=== PATIENT | female | born 1995 | race Caucasian/White ===

== ENCOUNTER 2016-09-18 19:02 | Outpatient (CLI) | payer OTHER ==
[2016-09-18 19:25] VITALS: BMI 38.3
== END 2016-09-18 20:23 | disposition home or self-care (01) ==
LOC: FBC 19:02 → FBCOUT 19:02
PROVIDERS: ATTEND Advanced Practice Midwife
DX: O47.9 False labor, unspecified (principal); Z3A.00 Weeks of gestation of pregnancy not specified; Z34.83 Encounter for supervision of other normal pregnancy, third trimester
CPT/HCPCS: 82570; 82043; 85025; 80053; 59025; G0463

== ENCOUNTER 2016-09-24 06:00 | Inpatient (IN) | payer OTHER ==
[2016-09-24 07:09] VITALS: BMI 38.3
[2016-09-24] MEDS: CALCIUM CARBONATE 750 MG TAB.CHEW PO PRN ×2 (07:56→13:21)
[2016-09-24] MEDS ORDERED: PENICILLIN G POTASSIUM 5 MMU in NS 0.9% (MINI-BAG PLUS) 100 ML IV ONE (08:55)
[2016-09-24] MEDS ORDERED: PUMP TUBING ONE (09:24)
[2016-09-24] MEDS ORDERED: OXYTOCIN IN LR 500 ML IV ONE (09:24)
[2016-09-24] MEDS ORDERED: MINERAL OIL 25 ML BOT ONE (09:24)
[2016-09-24] MEDS ORDERED: OXYTOCIN 10 UNITS/ML VIAL ONE (09:24)
[2016-09-24] MEDS ORDERED: LIDOCAINE 1% (PRES FREE) 30 ML VIAL ONE (09:24)
[2016-09-24] MEDS ORDERED: LIDOCAINE Viscous 2% 15 ML UDCUP ONE (09:24)
[2016-09-24] MEDS ORDERED: LACTATED RINGERS 1,000 ML ONE (09:25)
[2016-09-24] MEDS ORDERED: IV START KIT ONE (09:25)
[2016-09-24] MEDS ORDERED: PENICILLIN G POTASSIUM 5 MMU VIAL ONE (09:30)
[2016-09-24] MEDS ORDERED: SODIUM CHLORIDE 0.9% 100 ML IV ONE (09:31)
[2016-09-24] MEDS: LACTATED RINGERS 1,000 ML IV SCH ×3 (10:03→20:53)
[2016-09-24 10:43] LABS: HEMATOCRIT 36.9 % (37.0-47.0); HEMOGLOBIN 12.6 gm/l (12.0-16.0); MEAN CELL VOLUME 90.9 fl (81.0-99.0); MEAN CORPUSCULAR HGB CONC 34.1 g/dl (33.0-37.0); RED CELL DISTRIBUTION WIDTH 13.6 % (11.5-14.5)
--- NOTE | 2016-09-24 12:07 | PCMAN ---
OB Admission Note - History : 1 Term: 0 : 0 Abortions (S&E): 0 Livin Gestational Age (weeks): 41 Days (#/7): 1 Admit Cervical Dilation:: 4 Admit Cervical Effacement (%):: 80 Admit Station:: -2 Admit Presentaton:: vertex Membrane Status: Intact Labor Onset (Date): 09/24/16 Contractions: Yes Contraction Frequency:: q 4, 60, moderate Heart Rate:: 130 Status:: category 1 EFW:: 8# Summary of Course:: Onset of care at 8-9 weeks by uncertain LMP at [facility]. Dates by 10 week US. Transferred to us at 23 weeks and had essentially normal course until onset of labile blood pressures, significant pedal edema and proteinuria. PET labs normal 5 days ago. Had onset of contractions this am and made cervical change in an hour for labor check. BP stable on admit. - Labs Blood Type: B (+) positive Hct/Hgb:: 12.5 Rubella Status: Immune GBS Status: Positive Abnormal Labs: Other Other Labs:: P/C ratio >700 mg - Physical Exam Psych/Mental Status: Mood/Affect Appropriate Neurological: Grossly Intact Genitourinary: Normal Female Genitalia Rectal Exam: Deferred Extremities: Full ROM, Edema Skin: Normal Color, Warm, Dry, Intact
[2016-09-24] MEDS ORDERED: PENICILLIN G 3 MIL UNIT PREMIX 50 ML IV ONE ×3 (13:19→22:09)
[2016-09-24] MEDS: PENICILLIN G 3 MIL UNIT PREMIX 3 MMU in Premix (D5W) 50 ml 1 EACH IV SCH ×3 (13:46→22:33)
[2016-09-24] MEDS: OXYTOCIN IN LR 500 ML IV PRN (15:48)
--- NOTE | 2016-09-24 15:56 | PDOC36 ---
Provider Note Subject: CNM Progress note Note: S: Contractions have stopped. Pt asking many questions about labor- wants to know if they stopped because she didn't walk enough. O: Few contractions in last 2 hours FHR 130, good variability, no decels, category 1 BP stable 128/78, 138/85 A: Not in labor at 41 wks 1 day. Gestational proteinuria, labile hypertension P: Discussed options of starting pitocin vs going home to await labor. Risks and benefits of both reviewed. Pt opts for pitocin and orders placed.
[2016-09-24] MEDS: CALCIUM CARBONATE 500 MG TAB.CHEW PO PRN ×3 (18:09→21:17)
[2016-09-24] MEDS ORDERED: FENTANYL/ROPIVACAINE EPIDURAL 250 ML EP ONE (19:49)
[2016-09-24] MEDS ORDERED: EPIDURAL PUMP SET ONE (19:49)
[2016-09-24] MEDS ORDERED: BUPIVACAINE 0.25% (PRES FREE) 30 ML VIAL ONE (20:11)
[2016-09-24] MEDS ORDERED: EPIDURAL PROCEDURE TRAY ONE (20:11)
[2016-09-24] MEDS: FENTANYL/ROPIVACAINE EPIDURAL 250 ML EP SCH (21:56)
[2016-09-24] MEDS ORDERED: LABETALOL HCL 5 MG/ML 20ML VIAL IV ONE (22:48)
[2016-09-24] MEDS ORDERED: ACETAMINOPHEN 500 MG TABLET PO PRN (22:51)
[2016-09-24 23:05] LABS: ABSOLUTE NEUTROPHIL COUNT 9.6 K/mm3 (1.8-7.7); BASO % 0.3 % (0.2-1.0); HEMATOCRIT 33.9 % (37.0-47.0); HEMOGLOBIN 11.4 gm/l (12.0-16.0); IMM NEUT% 0.3 % (0-1); LYMPH # 1.3 (1.0-4.8); LYMPH % 10.9 % (15-45); MEAN CELL VOLUME 91.4 fl (81.0-99.0); MEAN CORPUSCULAR HEMOGLOBIN 30.7 pg (27.0-31.0); MEAN CORPUSCULAR HGB CONC 33.6 g/dl (33.0-37.0); MEAN PLATELET VOLUME 10.8 fl (7.4-10.4); MONO % 8.6 % (4-12); NEUT % 79.9 % (43-75); PLATELET COUNT 175 K/mm3 (130-400); RED CELL DISTRIBUTION WIDTH 13.9 % (11.5-14.5)
[2016-09-24 23:06] LABS: URINE BILIRUBIN NEGATIVE (NEGATIVE); URINE BLOOD NEGATIVE (NEGATIVE); URINE GLUCOSE (UA) NEGATIVE (NEGATIVE); URINE LEUKOCYTE ESTERASE NEGATIVE (NEGATIVE); URINE NITRITE NEGATIVE (NEGATIVE); URINE PROTEIN 2+ (NEGATIVE); URINE UROBILINOGEN NORMAL (0-1 mg/dl)
[2016-09-24 23:07] LABS: URINE APPEARANCE CLEAR; URINE COLOR YELLOW
[2016-09-24 23:13] LABS: URINE RBC 0-1 /hpf; URINE WBC 0-2 /hpf
[2016-09-24 23:16] LABS: CREATININE,RANDOM URINE 42 mg/dL
[2016-09-24 23:26] LABS: ALB/GLOB RATIO 0.9 (>1.0); ALBUMIN 2.7 gm/dL (3.5-5.7); CALCIUM 9.1 mg/dL (8.6-10.3)
--- NOTE | 2016-09-25 00:31 | PDOC36 ---
Provider Note Subject: Progress Note Note: Rosemarie Sanchez was starting to experience more uncomfortable uterine ctxs by 6:30pm. After some discussion about pain management she requested an epidural. She was on pitocin 7 mu/min IV at the time. ENVIRONMENTAL ENGINEERING INTERN came to her room and placed the epidural, with good effect. A urinary cath was placed and she was advised to lay on her side. After she became comfortable, the pitocin was augmented to achieve regular uterine ctxs. Laura has started to complain of a mild headache. Initially she declined Tylenol but accepted later in the night. We discussed that her BPs are remaining elevated even after her epidural. Her headache could be related to the BP, which is a potential symptom of pre-eclampsia. At this point will order labs to obtain a baseline. Her BPs have been elevated and Dr. Cardoza was consulted for medication parameters and notification of patient status. O/ FHR 136, accels, no decels, moderate variability Ctxs every 4 mins, moderate to palpation FHR 130, accels, no decels, moderate variability SVE 4/60/-2 at 7pm Pitocin IV BPs at 22:00 132/91, 22:20 156/88, 22:30 157/87 A/ for IOL for new onset proteinuria and elevated BPs Pitocin augmentation Latent labor GBS Positive Cat 1 FHR Headache P/ PET Labs Tylenol 1000mg, PO, for headache Consulted with Dr. Cardoza; Labetolol 20mg IV x 1 as needed and titrate up Continue to monitor labor progress closely
[2016-09-25] MEDS: LACTATED RINGERS 1,000 ML IV SCH ×6 (02:22→22:31)
[2016-09-25] MEDS ORDERED: ONDANSETRON 4 MG/2ML 2 ML VIAL ONE (02:28)
[2016-09-25] MEDS: CALCIUM CARBONATE 500 MG TAB.CHEW PO PRN (02:45)
[2016-09-25] MEDS ORDERED: PENICILLIN G 3 MIL UNIT PREMIX 50 ML IV ONE ×3 (02:46→10:59)
[2016-09-25] MEDS: PENICILLIN G 3 MIL UNIT PREMIX 3 MMU in Premix (D5W) 50 ml 1 EACH IV SCH ×4 (02:47→22:29)
[2016-09-25] MEDS ORDERED: NALBUPHINE HCL 20 MG/ML AMP IV PRN (03:00)
[2016-09-25] MEDS ORDERED: DIPHENHYDRAMINE HCL 50 MG/1 ML VIAL IV PRN (03:00)
[2016-09-25] MEDS ORDERED: METOCLOPRAMIDE HCL 5 MG/ML 2ML VIAL IV PRN (03:00)
[2016-09-25] MEDS ORDERED: NALOXONE HCL 0.4 MG/ML VIAL IV PRN (03:00)
[2016-09-25] MEDS ORDERED: SODIUM CHLORIDE 0.9% 500 ML IV PRN (03:00)
[2016-09-25] MEDS ORDERED: EPHEDRINE SULFATE 50 MG/ML 1ML VIAL IV PRN (03:00)
[2016-09-25] MEDS ORDERED: ONDANSETRON 4 MG/2ML 2 ML VIAL IV PRN (03:00)
[2016-09-25] MEDS ORDERED: LACTATED RINGERS 500 ML IV PRN (03:00)
--- NOTE | 2016-09-25 06:53 | PDOC36 ---
Provider Note Subject: Progress Note Note: Rosemarie Sanchez has slet through most of the night. She had two epidural bolus's at 2am and 3 am for pelvic pressure. RN checked her with the first episode and she was found to be 6.5./100/-1 and intact. Patient was turned on her other side and her pain improved. Pitocin has been running at 12mu/min through the night with uterine ctxs every 3 mins. Laura reported an improvement in her headache after she took the tylenol. Her BPs have also improved with sleep. No labetolol was given for her BPs. O/ FHR 130, Accels, no decels, moderate variability Ctxs every 3 mins and regular SVE at 2am: 6.5/100/-1 (Midnight was 6/100/-1 and OP) Pitocin at 12 mu/min Intact GBS positive BPs 0300 148/82, 0330 127/74, 0415 142/88, 0500 141/85 Afebrile P/C Ratio at 2300: 2643 H and H 11.4/33.9 A/ at 41 weeks and 2 days with proteinuria and elevated BPs Active labor phase Cat 1 FHR GBS positive P/ Reassess cervix this AM and adjust pitocin accordingly Consider AROM Treat BPs as needed Anticipate vaginal delivery
[2016-09-25] MEDS ORDERED: OXYTOCIN IN LR 500 ML IV ONE (07:51)
[2016-09-25] MEDS: FENTANYL/ROPIVACAINE EPIDURAL 250 ML EP SCH (10:44)
--- NOTE | 2016-09-25 11:13 | PDOC36 ---
Provider Note Subject: Labor Progress Note Note: Note delayed due to involvement in patient care S: Laura was feeling significant pelvic pressure and was found be dilated to 9.5cm with a bulging bag of water at 0700. She continued to labor to progress to complete and received a bolus of her epidural at the time. At 0830 minimal change was noted at the cervix, so AROM was considered. PARQ held with patient and she agreed with plan. AROM for clear fluid at 0850. At 0940 she was complete, feeling increased pressure, and a trial of pushing was initiated. Pushed in semi-reclined and side-lying with descent to 0 station but with little progress. Decided to labor down and reassess progress in one hour. O: VS BP 139/77 P 107 T 98.2F FHR 145, Accels, no decels, moderate variability Ctxs every 3 mins lasting 70-90 seconds SVE complete Pitocin at 12 mu/min Ruptured, clear fluid GBS positive Afebrile P/C Ratio at 2300: 2643 H and H 11.4/33.9 A: at 41 weeks and 2 days with proteinuria and elevated BPs Mild preeclampsia Cervix complete BPs remaining in moderate range Cat 1 FHR GBS positive Membranes ruptured x 2 hours, afebrile P: Labor down, position changes with peanut ball and spinning babies techniques. Consider IUPC to assess contraction strength while laboring down. Treat BPs as needed cEFM and intrauterine resus measures PRN. reasses descent in one hour and reevlauate as clinically indicated Anticipate vaginal delivery
[2016-09-25] MEDS: OXYTOCIN IN LR 500 ML IV PRN ×2 (12:30→13:04)
[2016-09-25] MEDS ORDERED: LIDOCAINE 1% (PRES FREE) 30 ML VIAL IF ONE (13:50)
[2016-09-25] MEDS ORDERED: FLU VACC 2016-17 (36MO-64Y)/PF 60 MCG/0.5 ML SYRINGE IM V ONE (14:35)
[2016-09-25] MEDS ORDERED: BENZOCAINE/MENTHOL 60 APPLIC/BOT TP PRN (15:07)
[2016-09-25] MEDS ORDERED: LANOLIN 50 APPLIC/7G TUBE TP PRN (15:07)
[2016-09-25] MEDS ORDERED: ACETAMINOPHEN 325 MG TABLET PO PRN (15:07)
[2016-09-25] MEDS ORDERED: MAGNESIUM HYDROXIDE 30 ML UDCUP PO PRN (15:07)
[2016-09-25] MEDS ORDERED: CALCIUM CARBONATE 500 MG TAB.CHEW PO PRN (15:07)
--- NOTE | 2016-09-25 15:50 | PCMDEL ---
Delivery Note - Labor 1st stage (hr/min):: 14 hrs 36 min 2nd stage (hr/min):: 3 hrs 36 mins 3rd stage (hr/min):: 8 mins Total (hr/min):: 18 hrs 12 mins Pushed (hr/min):: 2 hrs 36 mins - Delivery Delivery (Date): 09/25/16 Delivery (Time): 13:37 Gender: Male Weight: 8 lb 7 oz Presentation: Cephalic Position: OA Umbilical Cord: 3 Vessel Delayed Cord Clamping:: > 3 min 1 Minute Total: 9 5 Minute Total: 9 Placenta:: shultze, grossly intact EBL:: 400 Perineum:: 2nd degree vaginal, 2nd degree perineal Suture:: 3-0 chromic Anesthesia/Meds:: epidrual for labor, lidocaine for repair Length ROM:: 4h 48 mins Comments:: First Stage: Laura was traiged yesterday on 09/24 in latent labor and was admitted for IOL after a time of minimal cervical change. With Pitocin augmentation she progressed slowlyto active phase and was complete at 0940 this morning. She had epidural anesthesia for labor that was not very effective. Severe range BPs were noted in the wound care specialist of 09/[address] thibodeaux was consulted for parameters. Labetolol was never given as BPs remained within normal range or moderate range throughout the rest of labor. GBS pos with multiple doses - adequate prophylaxis. FHTs remained Cat 1 throughout first stage. AROM 0849 for clear fluid Second Stage: Laura made minimal progress for the first hour of pushing in multiple positions. She then moved to hands and knees and pushed spontaneously without directed coaching for another hour. After this time, infant was noted to be at +3 station. She pushed effectively in hands and knees for three more contractions. She reported that her legs were shaky and tired and moved to a semi hernandez's position. The crowned over several contractions, with occaional decels to the 100s during pushes. FHTs resolved quickly to baseline after each push. With controlled delvery of the head, of vigorous male, OA to LOT. Anterior shoulder and compound right hand came easily with the next push. No nuchal cord. delivered directly to the mother's abdomen and began crying. Apgars 9& 9. weight 8lbs 7 oz. Cord clamped and cut at 4 mins of life after pulsations ceased. Cord blood obtained. Third Stage: Perry Andersen and gentle traction - spontaneous delivery of grossly intact placenta. 3 vessel cord. IV Pitocin initiated for AMTSL. Vaginal vault and perineum inspected and found to have a 2nd degree left vaginal and perineal laceration. This was repaired with lidocaine anesthesia and 3-0 chromic with good approximation adn hemostasis. Fundus firm, midline. Straight cath for 200mL urine. Bleeding WNL remained skin to skin and bonding well with mother. QBL 400mL. Infant and mother in good condition.
[2016-09-25] MEDS: IBUPROFEN 800 MG TABLET PO SCH ×3 (17:35→23:29)
[2016-09-26] MEDS: IBUPROFEN 800 MG TABLET PO SCH ×3 (05:29→18:21)
[2016-09-26 06:35] LABS: HEMATOCRIT 27.5 % (37.0-47.0); HEMOGLOBIN 9.2 gm/l (12.0-16.0)
[2016-09-26] MEDS: DOCUSATE SODIUM 100 MG CAPSULE PO SCH (09:43)
--- NOTE | 2016-09-26 11:53 | PDOC44 ---
- Subjective Day: 1 Laura is feeling well this morning. She has the baby on her lap. She said he woke up to nurse at 2am and then at 7am. Advised to wake home a bit earlier than 5 hours, so as to establish nursing. She agreed. Her bleeding was slightly heavier yesterday after delivery bur reports a slowing of that today. Changes her pad every 3-4 hours. Minimal uterine cramping noted. Eating, drinking and voiding. Her BPs today are much improved over her BPs in labor. She did not require treatment while in labor. She reports that she had a lot of anxiety at the time and feels this was attributing to the elevation. She feels much less anxious now and is getting better sleep. Denies headache, swelling or RUQ pain. Advised Laura that she will probably stay 72 hours, as recommended with Pre- eclampsia. Reports Pain Tolerable, Reports , Reports Lochia Light, Reports Tolerating Regular Diet - Objective Temp Pulse Resp BP Pulse Ox 98.2 F 100 16 132/62 09/26/16 07:40 09/26/16 07:40 09/26/16 07:40 09/26/16 07:40 Lab Results 09/26/16 06:00 Hgb 9.2 L D Hct 27.5 L Current Medications Generic Name Dose Route Start Last Admin Trade Name Loyda PRN Reason Stop Dose Admin Acetaminophen 325 - 650 mg 09/25/16 15:07 Tylenol PO Q4H PRN Pain (Mild) Benzocaine/Menthol 1 applic 09/25/16 15:07 09/25/16 17:35 Dermoplast TP 1 applic PRN PRN Administration Patient Comfort Calcium Carbonate/Glycine 500 - 1,000 mg 09/25/16 15:07 Tums PO BID PRN Indigestion Docusate Sodium 100 mg 09/26/16 09:00 09/26/16 09:43 Colace PO 100 mg DAILY KELLY Administration Emollient Ointment 1 applic 09/25/16 15:07 [id number] TP PRN PRN sore nipples Ibuprofen 800 mg 09/25/16 15:30 09/26/16 11:34 Motrin PO 800 mg Q6H KELLY Administration Magnesium Hydroxide 30 ml 09/25/16 15:07 Milk Of Magnesia PO BEDTIME PRN Constipation Sodium Chloride 10 ml 09/25/16 15:07 Normal Saline 10ml Flush IV PRN PRN IV Flush Sodium Chloride 10 ml 09/25/16 17:00 09/26/16 02:34 Normal Saline 10ml Flush IV Not Given Q8HR KELLY - Physical Exam General: Afebrile Psych/Mental Status: Mood/Affect Appropriate Neurological: Grossly Intact, Alert Cardiovascular: Regular Rate and Rhythm Breast: Soft, Skin intact, Tenderness Fundus: Firm Genitourinary: Normal Female Genitalia Lochia: Light Rectal Exam: Deferred Extremities: Full ROM Skin: Normal Color, Warm, Dry, Intact - Problems:Assessment/Plan (1) Normal course Status: AcuteAssessment/Plan: A/ Day 1 S/P vaginal Mild Pre-eclampsia Breast feeding P/ Continue to monitor BPs support D/c home Wednesday - 72 hours PP Consider labs before discharge home F/U within one week of discharge for BP check
[2016-09-27] MEDS: IBUPROFEN 800 MG TABLET PO SCH ×5 (01:34→14:41)
[2016-09-27 06:13] LABS: ABSOLUTE NEUTROPHIL COUNT 8.8 K/mm3 (1.8-7.7); BASO % 0.3 % (0.2-1.0); EOS # 0.2 (0.0-0.5); EOS % 1.4 % (0.9-2.9); HEMATOCRIT 30.3 % (37.0-47.0); HEMOGLOBIN 9.9 gm/l (12.0-16.0); IMM NEUT # 0.1 K/mm3 (0-0.2); IMM NEUT% 0.9 % (0-1); LYMPH # 2.9 (1.0-4.8); LYMPH % 22.1 % (15-45); MEAN CELL VOLUME 95.3 fl (81.0-99.0); MEAN CORPUSCULAR HEMOGLOBIN 31.1 pg (27.0-31.0); MEAN CORPUSCULAR HGB CONC 32.7 g/dl (33.0-37.0); MEAN PLATELET VOLUME 10.5 fl (7.4-10.4); MONO # 1.1 (0.0-0.8); MONO % 8.4 % (4-12); NEUT % 66.9 % (43-75); PLATELET COUNT 206 K/mm3 (130-400); RED CELL DISTRIBUTION WIDTH 14.6 % (11.5-14.5)
[2016-09-27 06:28] LABS: ALB/GLOB RATIO 0.9 (>1.0); ALBUMIN 2.8 gm/dL (3.5-5.7); CALCIUM 8.4 mg/dL (8.6-10.3)
[2016-09-27] MEDS ORDERED: FERROUS GLUCONATE (38 Fe) 324 MG TABLET PO SCH (09:00)
[2016-09-27 09:31] LABS: CREATININE,RANDOM URINE 46 mg/dL
[2016-09-27] MEDS: DOCUSATE SODIUM 100 MG CAPSULE PO SCH (09:33)
[2016-09-27] MEDS ORDERED: HYDROCODONE/ACETAMINOPHEN 5/325MG TABLET PO PRN (09:36)
--- NOTE | 2016-09-27 09:46 | PDOC44 ---
- Subjective Day: 2 is going well. needs assistance to get a deep latch but is able to do so with support. Laura asks for reassurance with positioning and latch. Her back is sore at the site of the epidural. Laura reports having an occasional mild headache and some ringing in her ears. She is wants to know when she can go home. BPs have been stable, one isolated elevated BP that coincided with an anxiety producing conversation, otherwise they have been stable. Passed one larger clot this morning. She had been in bed all night and not ambulating. Denies dizziness and lightheadedness. Reports Flatus, Reports Pain Tolerable, Reports , Reports Lochia Moderate, Reports Tolerating Regular Diet - Objective Temp Pulse Resp BP Pulse Ox 97.8 F 98 18 142/85 09/27/16 07:38 09/27/16 08:07 09/27/16 07:38 09/27/16 08:07 Lab Results 09/27/16 05:20 WBC 13.2 H RBC 3.18 L Hgb 9.9 L Hct 30.3 L Plt Count 206 Creatinine 0.7 AST 19 ALT 14 09/27/16 05:20 MCH 31.1 H MCHC 32.7 L RDW 14.6 H Absolute Neuts (auto) 8.8 H Calcium 8.4 L Alkaline Phosphatase 155 H Total Protein 5.9 L Albumin 2.8 L Albumin/Globulin Ratio 0.9 L Current Medications Generic Name Dose Route Start Last Admin Trade Name Freq PRN Reason Stop Dose Admin Acetaminophen 325 - 650 mg 09/25/16 15:07 Tylenol PO Q4H PRN Pain (Mild) Benzocaine/Menthol 1 applic 09/25/16 15:07 09/25/16 17:35 Dermoplast TP 1 applic PRN PRN Administration Patient Comfort Calcium Carbonate/Glycine 500 - 1,000 mg 09/25/16 15:07 Tums PO BID PRN Indigestion Docusate Sodium 100 mg 09/26/16 09:00 09/26/16 09:43 Colace PO 100 mg DAILY KELLY Administration Emollient Ointment 1 applic 09/25/16 15:07 [id number] TP PRN PRN sore nipples Ferrous Gluconate 324 mg 09/27/16 09:00 Fergon PO BIDWM KELLY Ibuprofen 800 mg 09/25/16 15:30 09/27/16 07:36 Motrin PO 800 mg Q6H KELLY Administration Magnesium Hydroxide 30 ml 09/25/16 15:07 Milk Of Magnesia PO BEDTIME PRN Constipation Sodium Chloride 10 ml 09/25/16 15:07 Normal Saline 10ml Flush IV PRN PRN IV Flush Sodium Chloride 10 ml 09/25/16 17:00 09/27/16 09:12 Normal Saline 10ml Flush IV Not Given Q8HR KELLY - Physical Exam General: Afebrile Psych/Mental Status: Mood/Affect Appropriate, Judgment/Insight Intact, Bonding Well Neurological: Grossly Intact, Alert, Oriented x 4 HEENT: Atraumatic Lungs: Clear to Auscultation Bilaterally, Normal Air Movement Cardiovascular: Regular Rate and Rhythm, Normal S1, Normal S2 Breast: Soft, Skin intact, Nipples Intact Fundus: Firm, Midline, Below Umbilicus Lochia: Moderate Extremities: Full ROM Wound TOWER DIRECTOR: Well Approximated - Problems:Assessment/Plan (1) Pre-eclampsia Status: AcuteAssessment/Plan: A: s/p PP day 2 Normal PP course going well, normal first time challenges BPs stable Labs stable Lochia appropriate P: BPs q 2 hours today, consider DC to home care this evening if they remain in moderate range Will follow up in clinic with BP check in one week. to be followed by [facility]AB[facility] clinic. Disposition: Anticipate DC to Home
[2016-09-27 14:45] VITALS: BP 148/85
--- NOTE | 2016-09-27 16:47 | PDOC39B ---
Hospital Course: ADMIT DATE: 09/24/16 DISCHARGE DATE: 09/27/16 ADMISSION DIAGNOSES: proteinuria and labile blood pressures PROCEDURES: IOL at 41w 2nd degree perineal laeration repaired HISTORY OF PRESENT ILLNESS: 21 year old G1 T0 L0 at 41 weeks 1 days presenting with labile blood pressures, proteinuria and cointractions. She was induced and progressed to complete after cervical ripening, oxytocin and AROM. of vigorous male with 2nd degree perineal laceration HOSPITAL COURSE: The patient is adjusting to parenting. She has considerable anxiety around the fact that she is not sure if her boyfriend is the 's father. She is planning on paternity testing after discharge to be able to make a plan to move forward. She has had several episodes of anxiety in the hospital. Mostly this is related to the paternity issue. Howver she has experienced depression in the past and has been on medication for this. Warning signs were discussed. She does not desire medication at this time. She will be supported at home by her mother and grandmother. She is being seen by social work to sign up for the [facility] program and is hoping to be supported by family building blocks as well. By day of discharge the patient is ambulating, eating, voiding, and passing flatus without difficulty. Pain is controlled and lochia is appropriate. She is breastfeedign with a good latch. Her milk is slow to come in and the infatn does become frantic at times. Advised that donor breastmilk or formula are the only appropriate infant foods and that the infant shoudl not be given water or other supplements. Midwifery 'After the ' handout given to patient. - Physical Exam Vital Signs: Temp Pulse Resp BP Pulse Ox 98.2 F 111 18 148/85 09/27/16 14:42 09/27/16 14:42 09/27/16 14:42 09/27/16 14:42 General: Afebrile Psych/Mental Status: Mood/Affect Appropriate, Judgment/Insight Intact, Bonding Well Neurological: Grossly Intact, Alert HEENT: Atraumatic Lungs: Clear to Auscultation Bilaterally, Normal Air Movement Cardiovascular: Regular Rate and Rhythm, Normal S1, Normal S2 Breast: Soft, Skin intact, Nipples Intact Fundus: Firm, Midline, Below Umbilicus Genitourinary: Normal Female Genitalia Lochia: Moderate Extremities: Full ROM Skin: Normal Color Wound: Well Approximated (Laceration is well-approximated, and hemostatic. Minimal edema) - Discharge Diagnosis (1) Pre-eclampsia Status: ResolvedAssessment/Plan: A: s/p PP day 2 Normal PP course going well, normal first time challenges BPs stable Labs stable Lochia appropriate P: BPs q 2 hours today, consider DC to home care this evening if they remain in moderate range Will follow up in clinic with BP check in one week. to be followed by BAB[facility] clinic. - Discharge Plan Condition: Stable Disposition: Home Instruction Forms: Vaginal Discharge Instructions Prescriptions: Docusate Sodium [COLACE 100 MG CAPSULE (SHF)] 100 mg PO BID #60 cap Ferrous Gluconate [Iron] 256 mg PO BID #60 tablet Hydrocodone Bit/Acetaminophen [Chetek 5/325] 1 tab PO Q6H PRN #8 tablet PRN Reason: Pain Follow-Up: MacMorris-Bernie Benavidez CNM [Primary Care Provider] - As scheduled (At the [facility] on Sunday October 02, 2016 at 11am)
[2016-09-27] MEDS ORDERED: SERTRALINE HCL 50 MG TABLET PO ONE (17:37)
[2016-09-27] MEDS ORDERED: DOCUSATE SODIUM 100 MG CAPSULE PO SCH (21:00)
== END 2016-09-27 19:40 | disposition home or self-care (01) | DRG 775 ==
LOC: FBC 06:00 → FBCOUT 06:00 → FBC 08:43
PROVIDERS: ADMIT Advanced Practice Midwife; ATTEND Advanced Practice Midwife
PROC: 10907ZC Drainage of Amniotic Fluid, Therapeutic from Products of Conception, Via Natural or Artificial Opening (ICD-10-PCS; 2016-09-24)
PROC: 10H07YZ Insertion of Other Device into Products of Conception, Via Natural or Artificial Opening (ICD-10-PCS; 2016-09-24)
PROC: 4A1H7CZ Monitoring of Products of Conception, Cardiac Rate, Via Natural or Artificial Opening (ICD-10-PCS; 2016-09-24)
PROC: 10E0XZZ Delivery of Products of Conception, External Approach (ICD-10-PCS; principal; 2016-09-25)
PROC: 0KQM0ZZ Repair Perineum Muscle, Open Approach (ICD-10-PCS; 2016-09-25)
DX: O14.04 Mild to moderate pre-eclampsia, complicating childbirth (principal); O70.1 Second degree perineal laceration during delivery; O48.0 Post-term pregnancy; Z3A.41 41 weeks gestation of pregnancy; Z37.0 Single live birth; O99.824 Streptococcus B carrier state complicating childbirth